=== PATIENT | female | born 1935 | race Two or more races ===

== ENCOUNTER 2021-07-26 00:49 | Emergency (ER) | payer OTHER ==
[~2021-07-26] VITALS: Ht 162.6 cm; Wt 65.8 kg
--- NOTE | 2021-07-26 01:00 | NUR ---
[facility] WRIST PAIN S/P GLF. -BLOOD THINNERS -KO +DEFORMITY OF RIGHT WRIST. PT A/OX3. TOLERATING R/A WELL WITH NO SOB AT 94%. CONNECTED PT TO POX AND MONITOR. SAFETY MEASURES IN PLACE.
--- NOTE | 2021-07-26 01:05 | NUR ---
PER POLST, DNR
[2021-07-26] MEDS ORDERED: MORPHINE SULFATE INJ 2 MG/ML DISP.SYRIN ONE (01:08)
--- NOTE | 2021-07-26 01:14 | NUR ---
R WRIST #18G S/L; PATENT AND INTACT.
--- NOTE | 2021-07-26 01:20 | NUR ---
LEAF FAT SCRAPER AT PT'S BEDSIDE
--- NOTE | 2021-07-26 01:24 | NUR ---
COVID ANTIGEN SWAB COLLECTED AND GIVEN TO LAB. PLEBOTOMIST AT PT'S BEDSIDE
[2021-07-26] MEDS ORDERED: PROPOFOL 20 ML IV ONE (01:28)
[2021-07-26] MEDS ORDERED: PROPOFOL 200 MG/20 ML VIAL IV ONE (01:30)
[2021-07-26] MEDS ORDERED: MORPHINE SULFATE INJ 2 MG/ML DISP.SYRIN IV ONE (01:30)
--- NOTE | 2021-07-26 01:39 | NUR ---
PT ALERT, VERBALLY AGREED TO CONSENT FOR RIGHT WRIST REDUCTION UNDER SEDATION AND WITNESSED WITH 2 RNs. PT VERBALIZED UNDERSTANDING OF RISKS VS BENEFITS.
--- NOTE | 2021-07-26 01:40 | NUR ---
PT TAKEN TO CT VIA MICHEAL
--- NOTE | 2021-07-26 01:46 | NUR ---
Violet man in ED - 07/26/21 at 0151 by CHEMO PT RETURNED TO ER BED [address]
[2021-07-26 01:47] LABS: BASOPHILS % (AUTO) 0.4 % (0.0-2.0); EOSINOPHILS % (AUTO) 2.5 % (0.0-6.0); HEMATOCRIT 37 % (33-45); LYMPHOCYTES % (AUTO) 9.4 % (20.0-44.0); MEAN CORPUSCULAR HGB CONC 33 g/dl (31.0-36.0); MEAN CORPUSCULAR VOLUME 85 fL (82-100); MONOCYTES # (AUTO) 0.7 K/uL (0.1-1.30); MONOCYTES % (AUTO) 6.7 % (2.0-12.0); NEUTROPHILS # (AUTO) 8.8 K/uL (1.8-8.9); PLATELET COUNT (AUTO) 311 K/uL (150-450); RED BLOOD CELL COUNT(AUTO) 4.31 MIL/uL (4.0-5.2); WHITE BLOOD COUNT (AUTO) 10.9 K/uL (4.3-11.0)
[2021-07-26] MEDS ORDERED: PANT40TA49 PO (01:56)
[2021-07-26] MEDS ORDERED: FEBU40TA PO (01:56)
[2021-07-26] MEDS ORDERED: CLON0.2T PO (01:56)
[2021-07-26] MEDS ORDERED: MONT10TA22 PO (01:56)
[2021-07-26] MEDS ORDERED: QUET25TA PO (01:56)
[2021-07-26] MEDS ORDERED: DOCU-141 PO (01:56)
[2021-07-26] MEDS ORDERED: ATOR40TA PO (01:56)
[2021-07-26] MEDS ORDERED: METO100T14 PO (01:56)
[2021-07-26] MEDS ORDERED: METF-441 PO (01:56)
[2021-07-26] MEDS ORDERED: LINA5TAB PO (01:56)
--- NOTE | 2021-07-26 02:00 | NUR ---
PT RETURNED TO ER BED [address]
[2021-07-26 02:02] LABS: CALCIUM, SERUM 9.1 mg/dL (8.5-10.1); CARBON DIOXIDE 25 mmol/L (21-32); CHLORIDE 101 mmol/L (98-107); GLUCOSE 159 mg/dL (74-106); POTASSIUM 4.6 mmol/L (3.5-5.1); SODIUM SERUM 134 mmol/L (136-145); UREA NITROGEN, BLOOD 42 mg/dL (7-18)
--- NOTE | 2021-07-26 02:25 | NUR ---
RIGHT WRIST CLOSED REDUCTION UNDER MODERATED SEDATION DR. LAW STARR, RN, RT, AND EMT AT PT'S BEDSIDE FOR PROCEDURE. TIME IN: 210 0213: PROPROFOL 65MG TOTAL IVP ADMINISTERED. 0214: PT SEDATED AND STABLE PT ON O2 2LPM VIA N/C TOLERATING WELL AT 99%. 0218: R ARM SPLINT APPLIED. PT TOLERATED PROCEDURE WELL, VSS. 0224: TIME OUT. VSS 0225 PT AWAKE AND TOLERATING R/A WELL WITH NO SOB AT 94%
--- NOTE | 2021-07-26 02:26 | NUR ---
POWER BRAKE OPERATOR AT PT'S BEDSIDE
--- NOTE | 2021-07-26 02:46 | NUR ---
FAXED CLINICALS TO IRIS AT [facility] AT [phone]
--- NOTE | 2021-07-26 02:59 | NUR ---
Violet man in [facility] - 07/26/21 at 0738 by NIESHA BED ASSIGNMENT: [id number]
--- NOTE | 2021-07-26 05:00 | NUR ---
DR ESCOBAR ON THE PHONE W/ DR GARRETT FROM [facility]. PER ARRANGING TRANSPORTATION
--- NOTE | 2021-07-26 07:26 | NUR ---
CALLED [facility] AT [phone] AND ASKED FOR AN UPDATE. SHE WILL CALL US BACK
--- NOTE | 2021-07-26 07:34 | NUR ---
FACE DR ESCOBAR'S NOTE TO [facility] AT [phone]
--- NOTE | 2021-07-26 08:49 | NUR ---
JOE [phone] UNIT:[facility] BED 14, CALL FOR REPORT [phone], UNDER YONG WILL ARRANGE TRANSPORT
--- NOTE | 2021-07-26 08:57 | NUR ---
[facility]UR[facility] WILL ARRANGE TRANSPORT AND CALL BACK FOR DETAILS
--- NOTE | 2021-07-26 08:57 | NUR ---
REPORT GIVEN TO ELIZA ATKINS FOR [facility]
--- NOTE | 2021-07-26 09:47 | NUR ---
[employer] AUTHORIZATION [id number] PROVIDED BY JOE HOTEL FRONT DESK CLERK
--- NOTE | 2021-07-26 11:02 | NUR ---
PICKED UP BY TRANSPORT IN STABLE CONDITION
[2021-07-26 11:06] VITALS: BP 134/81
--- NOTE | 2021-07-26 11:07 | NUR ---
pt transferred to [facility] in stable condition.
== END 2021-07-26 11:07 | disposition short-term general hospital (02) ==
LOC: ER 00:51
DX: S52.611A Displaced fracture of right ulna styloid process, initial encounter for closed fracture (principal); S52.571A Other intraarticular fracture of lower end of right radius, initial encounter for closed fracture; W18.39XA Other fall on same level, initial encounter; Y92.129 Unspecified place in nursing home as the place of occurrence of the external cause; E04.1 Nontoxic single thyroid nodule; M50.23 Other cervical disc displacement, cervicothoracic region; Z88.6 Allergy status to analgesic agent; Z88.0 Allergy status to penicillin; Z88.8 Allergy status to other drugs, medicaments and biological substances; Z86.73 Personal history of transient ischemic attack (TIA), and cerebral infarction without residual deficits; Z20.822 Contact with and (suspected) exposure to COVID-19
CPT/HCPCS: 25605; 36415; 70450; 72125; 73110 ×2; 73130; 80048; 85025; 87081; 87426; 93005; 96374; 99152; 99291; C9803; J2270; J2704; J7030; G0500